=== PATIENT | male | born 1975 | race African-American/Black ===

== ENCOUNTER 2018-07-16 10:49 | Inpatient (IN) | payer MEDICAID ==
[~2018-07-16] VITALS: Ht 175.3 cm; Wt 81.4 kg
--- NOTE | 2018-07-16 10:50 | NUR ---
Patient is awake, confuse, unable to say the month or year at this time, spo2= mid-80's@room air, MD notified. Nasal cannula started. Maintained on continuous cardiac, BP & spo2 monitors with alarms set, on & audible. Extra warm blankets on. Seizure precaution initiated. IV line from the field was checked & this IV line does not work. PIV line infiltrates with 2 ml of saline flush. Frame Operator-RN will start another peripheral IV line.
[2018-07-16] MEDS ORDERED: LORAZEPAM 2 MG/1 ML VIAL ONE (11:20)
--- NOTE | 2018-07-16 11:23 | NUR ---
Simran navarrete in EDM - 07/16/18 at 1147 by ROSANGELA 1118- Patient had grand mal seizure (tonic clonic) for approximately lasted for less than a minute, medicated with IV ativan per MD order, suctioned orally.
--- NOTE | 2018-07-16 11:23 | NUR ---
1118- Patient had grand mal seizure (tonic-clonic) which lasted approximately less than a minute, MD is at bedside. Ativan 1mg IV given per MD order, suctioned orally.
--- NOTE | 2018-07-16 11:23 | NUR ---
Simran navarrete in EDM - 07/16/18 at 1132 by ROSANGELA Patient ahd grand mal seizure ( tonic & clonic) approx 30 seconds, medicated with IV ativan per MD order.
[2018-07-16] MEDS ORDERED: LORAZEPAM 2 MG/1 ML VIAL IV ONE (11:45)
[2018-07-16] MEDS ORDERED: LEVETIRACETAM IV 1,000 MG in IV DEXTROSE 5% 100 ML IV ONE (11:45)
[2018-07-16 11:55] LABS: BASOPHILS # (AUTO) 0.1 K/uL (0.0-8.0); BASOPHILS % (AUTO) 0.4 % (0.0-2.0); EOSINOPHILS # (AUTO) 0.1 K/uL (0.0-0.7); EOSINOPHILS % (AUTO) 0.7 % (0.0-7.0); HEMATOCRIT 44.3 % (36.7-47.1); LYMPHOCYTES # (AUTO) 2.1 K/uL (20.0-40.0); LYMPHOCYTES % (AUTO) 14.2 % (20.5-51.5); MEAN CORPUSCULAR HEMOGLOBIN 30.5 uug (23.8-33.4); MEAN CORPUSCULAR HGB CONC 32 g/dL (32.5-36.3); MEAN CORPUSCULAR VOLUME 96.3 fL (73.0-96.2); MONOCYTES % (AUTO) 6.7 % (0.0-11.0); NEUTROPHILS # (AUTO) 11.4 K/uL (1.8-8.9); PLATELET COUNT (AUTO) 254 K/uL (152-348); WHITE BLOOD COUNT (AUTO) 14.7 K/uL (3.6-10.2)
[2018-07-16 12:04] LABS: ETHANOL < 3 MG/DL (0-0)
[2018-07-16 12:12] LABS: ALANINE AMINOTRANSFERASE 63 U/L (16-63); ALKALINE PHOSPHATASE 61 U/L (50-136); ASPARTATE AMINOTRANSFERASE 219 U/L (15-37); BILIRUBIN,DIRECT 0.1 mg/dL (0.0-0.2); BILIRUBIN,TOTAL 0.3 mg/dL (0.2-1.0); CHLORIDE 105 mmol/L (98-107); CREATININE 1.5 mg/dL (0.6-1.3); GLUCOSE 127 mg/dL (74-106); POTASSIUM 3.8 mmol/L (3.5-5.1); TOTAL PROTEIN, SERUM 8.6 g/dL (6.4-8.2); UREA NITROGEN, BLOOD 12 mg/dL (7-18)
[2018-07-16 12:14] LABS: ACETAMINOPHEN < 2.0 ug/mL (10-30); CARBON DIOXIDE 9 mmol/L (21-32)
[2018-07-16 12:26] LABS: THYROID STIMULATING HORMONE 2.054 mIU/mL (0.358-3.740)
--- NOTE | 2018-07-16 12:29 | NUR ---
Patient is resting comfortably in bed with eyes closed, arousable by voice, follows command, respiration:easy. Girlfriend is at bedside.
[2018-07-16 12:43] LABS: *BILIRUBIN,URIN NEGATIVE (NEGATIVE); *BLOOD, URINE 3+ (NEGATIVE); *CLARITY,URINE CLEAR (CLEAR); *COLOR,URINE YELLOW (YELLOW); *KETONES,URINE NEGATIVE (NEGATIVE); *UROBILINOGEN,URINE 0.2 E.U./dl (NORMAL); LEUKOCYTE ESTERASE ,URINE NEGATIVE (NEGATIVE); NITRITE, URINE NEGATIVE (NEGATIVE); PH,URINE 5.5 (5.0-8.0); UGLUCOSE NEGATIVE (NEGATIVE)
[2018-07-16 12:49] LABS: *AMPHETAMINE, URINE NEGATIVE (NEGATIVE); *BARBITURATE, URINE NEGATIVE (NEGATIVE); *CANNABINOID, URINE POSITIVE (NEGATIVE); *COCCAINE, URINE NEGATIVE (NEGATIVE); *OPIATE, URINE NEGATIVE (NEGATIVE); *PHENCYCLIDINE SCREEN,URINE NEGATIVE (NEGATIVE); BACTERIA,URINE FEW /HPF (NONE SEEN); RBC,URINE 0-3 /HPF (0-3); SQUAMOUS EPITHELIAL CELL,UR FEW /HPF (NONE SEEN); WBC,URINE 0-3 /HPF (0-3)
[2018-07-16 14:54] VITALS: BP 133/69
[2018-07-16] MEDS ORDERED: MAGNESIUM HYDROXIDE 30 ML LIQUID UDC PO PRN (16:00)
[2018-07-16] MEDS ORDERED: ONDANSETRON 4 MG/2 ML VIAL IV PRN (16:00)
[2018-07-16] MEDS ORDERED: LORAZEPAM 2 MG/1 ML VIAL IV PRN (16:00)
[2018-07-16] MEDS ORDERED: ZOLPIDEM 5 MG TABLET PO PRN (16:00)
[2018-07-16] MEDS ORDERED: HYDROCODONE/APAP 5-325MG TABLET PO PRN (16:00)
[2018-07-16] MEDS ORDERED: Z GUARD REMEDY PASTE 57 GM TUBE TOP PRN (16:00)
[2018-07-16] MEDS ORDERED: ACETAMINOPHEN 325 MG TABLET PO PRN (16:00)
[2018-07-16] MEDS ORDERED: CEFTRIAXONE 1 G in IV DEXTROSE 5% 50 ML IV SCH ×2 (17:00→23:45)
[2018-07-16] MEDS: LACTULOSE 20 G/30 ML LIQUID UDC PO SCH ×3 (17:32→23:49)
[2018-07-16] MEDS: IV NS 1000 ML 1,000 ML IV PRN (17:45)
[2018-07-16 19:58] VITALS: BP 106/53
--- NOTE | 2018-07-16 23:00 | NUR ---
Yesy VELEZ here and saw patient; new orders made and carried out.
[2018-07-16] MEDS: THIAMINE HCL 100 MG TABLET PO SCH (23:49)
[2018-07-16] MEDS: FOLIC ACID 1 MG TABLET PO SCH (23:49)
[2018-07-17 01:06] VITALS: BP 97/61
[2018-07-17] MEDS: IV NS 1000 ML 1,000 ML IV PRN (04:52)
[2018-07-17 05:12] VITALS: BP 124/68
[2018-07-17] MEDS: LACTULOSE 20 G/30 ML LIQUID UDC PO SCH (05:46)
[2018-07-17 05:47] LABS: BASOPHILS % (AUTO) 0.4 % (0.0-2.0); EOSINOPHILS # (AUTO) 0.1 K/uL (0.0-0.7); EOSINOPHILS % (AUTO) 1.5 % (0.0-7.0); HEMATOCRIT 37.5 % (36.7-47.1); HEMOGLOBIN 12.8 g/dL (12.5-16.3); LYMPHOCYTES # (AUTO) 1.5 K/uL (20.0-40.0); LYMPHOCYTES % (AUTO) 19.6 % (20.5-51.5); MEAN CORPUSCULAR HEMOGLOBIN 30.6 uug (23.8-33.4); MEAN CORPUSCULAR HGB CONC 34 g/dL (32.5-36.3); MEAN CORPUSCULAR VOLUME 89.4 fL (73.0-96.2); MONOCYTES # (AUTO) 0.9 K/uL (2.0-10.0); MONOCYTES % (AUTO) 10.8 % (0.0-11.0); NEUTROPHILS # (AUTO) 5.3 K/uL (1.8-8.9); NEUTROPHILS % (AUTO) 67.7 % (38.5-71.5); PLATELET COUNT (AUTO) 234 K/uL (152-348); WHITE BLOOD COUNT (AUTO) 7.9 K/uL (3.6-10.2)
[2018-07-17] MEDS ORDERED: CHLORDIAZEPOXIDE HCL 25 MG CAPSULE PO SCH (06:00)
[2018-07-17 06:13] LABS: CREATININE 1.4 mg/dL (0.6-1.3); MAGNESIUM 2.1 mg/dL (1.8-2.4); PHOSPHOROUS 4.3 mg/dL (2.5-4.9); POTASSIUM 3.8 mmol/L (3.5-5.1)
[2018-07-17 07:55] VITALS: BP 107/64
[2018-07-17] MEDS: THIAMINE HCL 100 MG TABLET PO SCH (07:57)
[2018-07-17] MEDS: FOLIC ACID 1 MG TABLET PO SCH (07:57)
--- NOTE | 2018-07-17 08:00 | NUR ---
AWAKE ALERT AND ORIENTED X3 NO SS OF PAIN OR DISTRESS, NO SEIZURE CONTINUE WITH IVF. SB
--- NOTE | 2018-07-17 10:00 | NUR ---
SEEN BY Keyon EDMONDSON DIGITAL PRINT OPERATOR WITH DC ORDER. SPOKE WITH PATIENT TO FOLLOW-UP WITH PCP AND CONTINUE WITH L[facility] FOR ELEVATED WBC
[2018-07-17] MEDS ORDERED: LEVO500T2 PO (12:02)
[2018-07-17 12:12] VITALS: BP 113/51
--- NOTE | 2018-07-17 12:57 | NUR ---
DISCHARGED HOME STABLE ACCOMPANIED BY FAMILY. WILL CALL APPT FOR PCP.
== END 2018-07-17 13:00 | disposition home or self-care (01) | DRG 433 ==
LOC: ER 10:49 → DOU 14:04 → TELE-TD 14:49
PROVIDERS: ADMIT Nurse Practitioner Acute Care; ATTEND Nurse Practitioner Acute Care
DX: K70.40 Alcoholic hepatic failure without coma (principal); F10.239 Alcohol dependence with withdrawal, unspecified; G40.509 Epileptic seizures related to external causes, not intractable, without status epilepticus; E87.2 Acidosis; Y90.0 Blood alcohol level of less than 20 mg/100 ml; D72.829 Elevated white blood cell count, unspecified
CPT/HCPCS: 36415; 70030-TC; 70450; 71045; 80307; 83605; 83735; 84100; 84443; 85025; 85730; 87040; 87086; 93005; A4663; G0378; G0480; G0480-TC; J0696; J1953; J2060; J7030; J7060

== ENCOUNTER 2018-08-03 09:12 | Inpatient (IN) | payer OTHER ==
[~2018-08-03] VITALS: Ht 180.3 cm; Wt 86.2 kg
[~2018-08-03 09:12] MED LIST: LEVO500T2 PO
[2018-08-03] MEDS ORDERED: LORAZEPAM 2 MG/1 ML VIAL ONE (09:42)
[2018-08-03] MEDS ORDERED: THIAMINE HCL 200 MG/2 ML VIAL ONE (09:42)
[2018-08-03] MEDS ORDERED: LORAZEPAM 2 MG/1 ML VIAL IV ONE (09:45)
[2018-08-03] MEDS ORDERED: THIAMINE HCL 200 MG/2 ML VIAL IV ONE (09:45)
[2018-08-03] MEDS ORDERED: IV NORMAL SALINE 1000 ML BAG IV ONE (09:45)
[2018-08-03 09:50] LABS: BASOPHILS # (AUTO) 0.1 K/uL (0.0-8.0); BASOPHILS % (AUTO) 0.8 % (0.0-2.0); EOSINOPHILS # (AUTO) 0.1 K/uL (0.0-0.7); EOSINOPHILS % (AUTO) 1.5 % (0.0-7.0); HEMATOCRIT 39.8 % (36.7-47.1); HEMOGLOBIN 13.3 g/dL (12.5-16.3); LYMPHOCYTES # (AUTO) 2.1 K/uL (20.0-40.0); LYMPHOCYTES % (AUTO) 21.6 % (20.5-51.5); MEAN CORPUSCULAR HEMOGLOBIN 30.5 uug (23.8-33.4); MEAN CORPUSCULAR HGB CONC 34 g/dL (32.5-36.3); MEAN CORPUSCULAR VOLUME 91.1 fL (73.0-96.2); MONOCYTES # (AUTO) 0.5 K/uL (2.0-10.0); MONOCYTES % (AUTO) 5.6 % (0.0-11.0); NEUTROPHILS # (AUTO) 6.7 K/uL (1.8-8.9); NEUTROPHILS % (AUTO) 70.5 % (38.5-71.5); PLATELET COUNT (AUTO) 189 K/uL (152-348); RED BLOOD CELL COUNT(AUTO) 4.36 MIL/uL (4.06-5.63); WHITE BLOOD COUNT (AUTO) 9.5 K/uL (3.6-10.2)
[2018-08-03 10:00] LABS: CARBON DIOXIDE 16 mmol/L (21-32); CHLORIDE 104 mmol/L (98-107); CREATININE 1.4 mg/dL (0.6-1.3); GLUCOSE 123 mg/dL (74-106); POTASSIUM 4.4 mmol/L (3.5-5.1); UREA NITROGEN, BLOOD 13 mg/dL (7-18)
--- NOTE | 2018-08-03 10:03 | NUR ---
LABS DRAWN AND SENT, IV PLACED, 1L 0.9NS INFUSINING, ATIVAN ADMIN. MONITOR SHOWS NSR, PT RETURN FROM CT SCAN. SIDE RAILES PADDED.
[2018-08-03 10:06] LABS: ALANINE AMINOTRANSFERASE 31 U/L (16-63); ALKALINE PHOSPHATASE 67 U/L (50-136); ASPARTATE AMINOTRANSFERASE 19 U/L (15-37); BILIRUBIN,DIRECT 0.1 mg/dL (0.0-0.2); BILIRUBIN,TOTAL 0.3 mg/dL (0.2-1.0); TOTAL PROTEIN, SERUM 7.4 g/dL (6.4-8.2)
[2018-08-03 10:07] LABS: ACETAMINOPHEN < 2.0 ug/mL (10-30)
[2018-08-03 10:08] LABS: ETHANOL < 3 MG/DL (0-0)
[2018-08-03 10:18] LABS: *BILIRUBIN,URIN NEGATIVE (NEGATIVE); *BLOOD, URINE 1+ (NEGATIVE); *CLARITY,URINE CLEAR (CLEAR); *COLOR,URINE YELLOW (YELLOW); *KETONES,URINE 1+ (NEGATIVE); *UROBILINOGEN,URINE 0.2 E.U./dl (NORMAL); LEUKOCYTE ESTERASE ,URINE NEGATIVE (NEGATIVE); NITRITE, URINE NEGATIVE (NEGATIVE); PH,URINE 5.5 (5.0-8.0); UGLUCOSE NEGATIVE (NEGATIVE)
[2018-08-03 10:20] LABS: BACTERIA,URINE FEW /HPF (NONE SEEN); RBC,URINE 0-3 /HPF (0-3); SQUAMOUS EPITHELIAL CELL,UR FEW /HPF (NONE SEEN); WBC,URINE 0-3 /HPF (0-3)
[2018-08-03 10:28] LABS: *AMPHETAMINE, URINE NEGATIVE (NEGATIVE); *BARBITURATE, URINE NEGATIVE (NEGATIVE); *CANNABINOID, URINE POSITIVE (NEGATIVE); *COCCAINE, URINE NEGATIVE (NEGATIVE); *OPIATE, URINE NEGATIVE (NEGATIVE); *PHENCYCLIDINE SCREEN,URINE NEGATIVE (NEGATIVE)
--- NOTE | 2018-08-03 11:24 | NUR ---
IV COMPLETED, SBAR REPORT TO TAVO RN, PT TO RM 203 VIA JAVAN. BELONGINGS LIST DONE.
[2018-08-03 12:00] VITALS: BP 123/69
[2018-08-03 12:12] VITALS: BP 114/63
[2018-08-03] MEDS ORDERED: Z GUARD REMEDY PASTE 57 GM TUBE TOP PRN (12:30)
[2018-08-03] MEDS ORDERED: HYDROCODONE/APAP 5-325MG TABLET PO PRN (12:30)
[2018-08-03] MEDS ORDERED: MAGNESIUM HYDROXIDE 30 ML LIQUID UDC PO PRN (12:30)
[2018-08-03] MEDS ORDERED: ONDANSETRON 4 MG/2 ML VIAL IV PRN (12:30)
[2018-08-03] MEDS ORDERED: ZOLPIDEM 5 MG TABLET PO PRN (12:30)
[2018-08-03] MEDS ORDERED: ACETAMINOPHEN 325 MG TABLET PO PRN (12:30)
[2018-08-03] MEDS ORDERED: LORAZEPAM 2 MG/1 ML VIAL IV PRN (12:45)
[2018-08-03] MEDS: IV D5 1/2 NS 1000 ML 1,000 ML IV PRN (13:04)
[2018-08-03 16:25] VITALS: BP 104/64
--- NOTE | 2018-08-03 18:10 | NUR ---
PATIENT ADMITTED A/A/OX4, DENIES PAIN, STATES "VERY SLEEPY". PATIENT SLEPT MOST OF THE SHIFT SINCE ARRIVAL, AWAKE AT THIS TIME WITH SIGNIFICANT OTHER AT BEDSIDE. ORIENTED TO CALL LIGHT, BED ALARM ON FOR SAFETY. IV INTACT AND FLUIDS RUNNING. SEIZURE PRECAUTIONS MAINTAINED. CALL LIGHT IN REACH.
[2018-08-03 20:27] VITALS: BP 139/76
[2018-08-04] MEDS: IV D5 1/2 NS 1000 ML 1,000 ML IV PRN (00:10)
[2018-08-04 05:44] VITALS: BP 128/63
[2018-08-04 06:36] LABS: BASOPHILS % (AUTO) 0.7 % (0.0-2.0); EOSINOPHILS # (AUTO) 0.1 K/uL (0.0-0.7); EOSINOPHILS % (AUTO) 1.8 % (0.0-7.0); HEMATOCRIT 36.8 % (36.7-47.1); HEMOGLOBIN 12.4 g/dL (12.5-16.3); LYMPHOCYTES # (AUTO) 1.6 K/uL (20.0-40.0); LYMPHOCYTES % (AUTO) 23.1 % (20.5-51.5); MEAN CORPUSCULAR HEMOGLOBIN 30.6 uug (23.8-33.4); MEAN CORPUSCULAR HGB CONC 34 g/dL (32.5-36.3); MONOCYTES # (AUTO) 0.5 K/uL (2.0-10.0); MONOCYTES % (AUTO) 7.4 % (0.0-11.0); NEUTROPHILS # (AUTO) 4.8 K/uL (1.8-8.9); PLATELET COUNT (AUTO) 178 K/uL (152-348); RED BLOOD CELL COUNT(AUTO) 4.05 MIL/uL (4.06-5.63); WHITE BLOOD COUNT (AUTO) 7.1 K/uL (3.6-10.2)
[2018-08-04 06:44] LABS: CREATININE 1.2 mg/dL (0.6-1.3); MAGNESIUM 1.9 mg/dL (1.8-2.4); PHOSPHOROUS 3.2 mg/dL (2.5-4.9); TOTAL PROTEIN, SERUM 6.4 g/dL (6.4-8.2)
--- NOTE | 2018-08-04 07:54 | NUR ---
Awake, alert, oriented x 4. Saline lock out. IVF off. Not in distress, verbalized feeling better
--- NOTE | 2018-08-04 08:30 | NUR ---
Agreed for reinsertion of saline lock. IVF resumed, due medication given
[2018-08-04] MEDS ORDERED: THIAMINE HCL INJ 100 MG in IV DEXTROSE 5% 50 ML IV SCH (09:00)
--- NOTE | 2018-08-04 10:25 | NUR ---
Called Dr. Bhat left message about AMA
--- NOTE | 2018-08-04 10:28 | NUR ---
Girlfriend at bedside. Patient very upset and angry regarding personal issues and wants to AMA. Risks and benefits explained and advised to follow up with PMD. Signed AMA form. Saline lock removed. Went home per ambulatory
== END 2018-08-04 10:25 | disposition left against medical advice (07) | DRG 894 ==
LOC: ER 09:12 → MERGE 09:12 → ER 11:47 → MED 12:02
PROVIDERS: ADMIT Internal Medicine; ATTEND Internal Medicine
DX: F10.231 Alcohol dependence with withdrawal delirium (principal); N17.0 Acute kidney failure with tubular necrosis; G40.509 Epileptic seizures related to external causes, not intractable, without status epilepticus; Y90.0 Blood alcohol level of less than 20 mg/100 ml
CPT/HCPCS: 36415; 70450; 71045; 80307; 83735; 84100; 85025; A4663; G0378; G0480; G0480-TC; J2060; J3411; J3490; J7030; J7060

== ENCOUNTER 2018-12-23 04:12 | Inpatient (IN) | payer MEDICAID, OTHER ==
[~2018-12-23] VITALS: Ht 175.3 cm; Wt 79.4 kg
[2018-12-23] MEDS: IV D5/ 0.9% NACL 1,000 ML IV ONE ×2 (04:19→04:47)
--- NOTE | 2018-12-23 04:20 | NUR ---
Dr. Riggs at bedside for MSE.
--- NOTE | 2018-12-23 04:20 | NUR ---
Seizure precautions implemented
[2018-12-23] MEDS ORDERED: [UNRECOGNIZED DRUG - REMARK] (04:21)
[2018-12-23 04:43] LABS: BASOPHILS # (AUTO) 0.1 K/uL (0.0-8.0); BASOPHILS % (AUTO) 0.7 % (0.0-2.0); EOSINOPHILS # (AUTO) 0.2 K/uL (0.0-0.7); EOSINOPHILS % (AUTO) 1.8 % (0.0-7.0); HEMOGLOBIN 14.5 g/dL (12.5-16.3); LYMPHOCYTES # (AUTO) 2.9 K/uL (20.0-40.0); MEAN CORPUSCULAR HEMOGLOBIN 29.3 uug (23.8-33.4); MEAN CORPUSCULAR HGB CONC 32 g/dL (32.5-36.3); MEAN CORPUSCULAR VOLUME 91.2 fL (73.0-96.2); MONOCYTES # (AUTO) 0.7 K/uL (2.0-10.0); MONOCYTES % (AUTO) 7.2 % (0.0-11.0); NEUTROPHILS # (AUTO) 5.4 K/uL (1.8-8.9); NEUTROPHILS % (AUTO) 59.3 % (38.5-71.5); PLATELET COUNT (AUTO) 250 K/uL (152-348); RED BLOOD CELL COUNT(AUTO) 4.94 MIL/uL (4.06-5.63); WHITE BLOOD COUNT (AUTO) 9.2 K/uL (3.6-10.2)
[2018-12-23] MEDS ORDERED: LORAZEPAM 2 MG/1 ML VIAL ONE ×2 (04:45→05:23)
--- NOTE | 2018-12-23 04:45 | NUR ---
Pt keeps refusing IV. notified.
[2018-12-23] MEDS: LORAZEPAM 2 MG/1 ML VIAL IV ONE ×2 (04:47→05:28)
--- NOTE | 2018-12-23 04:47 | NUR ---
Pt out of ER for CT.
[2018-12-23] MEDS ORDERED: LORAZEPAM 1 MG TABLET ONE (04:48)
[2018-12-23 04:49] LABS: ETHANOL < 3 MG/DL (0-0)
[2018-12-23 04:50] LABS: CARBON DIOXIDE 13 mmol/L (21-32); CHLORIDE 104 mmol/L (98-107); CREATININE 1.4 mg/dL (0.6-1.3); GLUCOSE 107 mg/dL (74-106); POTASSIUM 4.5 mmol/L (3.5-5.1); UREA NITROGEN, BLOOD 14 mg/dL (7-18)
[2018-12-23 05:05] LABS: ACETAMINOPHEN < 2.0 ug/mL (10-30); ALANINE AMINOTRANSFERASE 22 U/L (16-63); ALKALINE PHOSPHATASE 61 U/L (50-136); ASPARTATE AMINOTRANSFERASE 20 U/L (15-37); BILIRUBIN,DIRECT 0.1 mg/dL (0.0-0.2); BILIRUBIN,TOTAL 0.3 mg/dL (0.2-1.0); TOTAL PROTEIN, SERUM 8.4 g/dL (6.4-8.2)
--- NOTE | 2018-12-23 05:05 | NUR ---
Pt back to ER from CT.
[2018-12-23] MEDS ORDERED: LEVETIRACETAM IV 500 MG in IV DEXTROSE 5% 100 ML IV ONE (05:15)
[2018-12-23] MEDS ORDERED: LEVETIRACETAM 500 MG/5 ML VIAL IV ONE (05:20)
[2018-12-23] MEDS ORDERED: THIAMINE HCL 200 MG/2 ML VIAL IV ONE (05:30)
[2018-12-23] MEDS ORDERED: THIAMINE HCL 200 MG/2 ML VIAL ONE (05:32)
[2018-12-23] MEDS ORDERED: LORAZEPAM 0.5 MG TABLET PO ONE (05:45)
--- NOTE | 2018-12-23 05:50 | NUR ---
Pt provided urine sample, sent to lab.
[2018-12-23] MEDS ORDERED: LACTULOSE 20 G/30 ML LIQUID UDC PO ONE (06:00)
--- NOTE | 2018-12-23 06:04 | NUR ---
Dr. Riggs on panel call with Dr. Odonnell. Patient accepted for admission to [facility], diagnosis: alcohol withdrawal, seizures.
[2018-12-23] MEDS ORDERED: THIAMINE HCL 100 MG TABLET PO ONE (06:15)
[2018-12-23] MEDS ORDERED: MAGNESIUM HYDROXIDE 30 ML LIQUID UDC PO PRN (06:15)
[2018-12-23] MEDS ORDERED: Z GUARD REMEDY PASTE 57 GM TUBE TOP PRN (06:15)
[2018-12-23] MEDS ORDERED: ONDANSETRON 4 MG/2 ML VIAL IV PRN (06:15)
[2018-12-23] MEDS ORDERED: LORAZEPAM 2 MG/1 ML VIAL IV PRN (06:15)
[2018-12-23] MEDS ORDERED: HYDROCODONE/APAP 5-325MG TABLET PO PRN (06:15)
[2018-12-23] MEDS ORDERED: LACTULOSE 20 G/30 ML LIQUID UDC ONE (06:18)
[2018-12-23 06:36] LABS: *AMPHETAMINE, URINE NEGATIVE (NEGATIVE); *BARBITURATE, URINE NEGATIVE (NEGATIVE); *CANNABINOID, URINE POSITIVE (NEGATIVE); *COCCAINE, URINE NEGATIVE (NEGATIVE); *OPIATE, URINE NEGATIVE (NEGATIVE); *PHENCYCLIDINE SCREEN,URINE NEGATIVE (NEGATIVE)
--- NOTE | 2018-12-23 06:56 | NUR ---
Report given to Minor Galdamez RN dayshift.
--- NOTE | 2018-12-23 07:03 | NUR ---
RECEIVED SHIFT REPORT FROM DEVORA Wakefield RN. PT RESTING IN BED. VSS. SEIZURE PRECAUTIONS OBSERVED.
--- NOTE | 2018-12-23 07:57 | NUR ---
ADMITTING REPORT GIVEN TO CORRINA GRAMAJO.
--- NOTE | 2018-12-23 07:58 | NUR ---
Pt. admitted to TELE 301, under care of Dr. PERKINS. Belongs List completed
--- NOTE | 2018-12-23 08:00 | NUR ---
RECEIVED PATIENT FROM ER, PATIENT AWAKE ALERT AND ORIENTED X3. SEIZURE PRECAUTIONS IMPLEMENTED. NPO PER DR. VARGAS. PATIENT DENIES ANY PAIN OR DISCOMFORT AT THIS TIME. BED IN LOWEST POSITION WITH SIDE RAILS UP AND PADDED. BED ALARM ON, AND CALL LIGHT AT REACH.
[2018-12-23 09:00] VITALS: BP 140/87
[2018-12-23] MEDS: FOLIC ACID 1 MG TABLET PO SCH (09:00)
[2018-12-23] MEDS ORDERED: PANTOPRAZOLE SODIUM 40 MG VIAL IV SCH (09:00)
[2018-12-23] MEDS: LACTULOSE 20 G/30 ML LIQUID UDC PO SCH ×4 (09:00→20:17)
--- NOTE | 2018-12-23 09:00 | NUR ---
MD NOTIFIED REGARDING NEW ADMISSION ORDERS AND LACTIC ACID RESULTS. NO NEW ORDERS RECEIVED AT THIS TIME.
[2018-12-23] MEDS: IV NS 1000 ML 1,000 ML IV PRN ×2 (10:00→23:30)
[2018-12-23 12:34] VITALS: BP 127/81
[2018-12-23 15:29] VITALS: BP 119/68
[2018-12-23] MEDS: LEVETIRACETAM IV 500 MG in IV DEXTROSE 5% 100 ML IV SCH (17:14)
--- NOTE | 2018-12-23 18:43 | NUR ---
PATIENT COMFORTABLE THROUGHOUT SHIFT, IN NO DISTRESS. SEIZURE PRECAUTIONS, VITAL SIGNS STABLE. BED AT LOWEST POSITION, SIDE RAILS UP X2 AND CALL LIGHT WITHIN REACH.
--- NOTE | 2018-12-23 19:30 | NUR ---
Received pt in bed, resting and in no acute signs of distress. No c/o pain. IV fluids infusing. On seizure precautions, bilateral siderails padded. Safety measures observed.
[2018-12-23 20:14] VITALS: BP 139/72
[2018-12-23] MEDS: FAMOTIDINE. 20 MG/2 ML VIAL IV SCH (20:17)
[2018-12-24 00:46] VITALS: BP 108/75
[2018-12-24 04:43] VITALS: BP 132/67
[2018-12-24] MEDS: LEVETIRACETAM IV 500 MG in IV DEXTROSE 5% 100 ML IV SCH (05:16)
--- NOTE | 2018-12-24 05:50 | NUR ---
No significant changes during shift. No c/o pain. SR/ Sinus huey on tele. In no acute signs of distress. No seizure episode. Safety measures rendered.
[2018-12-24 06:54] LABS: BASOPHILS # (AUTO) 0.1 K/uL (0.0-8.0); BASOPHILS % (AUTO) 0.9 % (0.0-2.0); EOSINOPHILS # (AUTO) 0.1 K/uL (0.0-0.7); EOSINOPHILS % (AUTO) 1.1 % (0.0-7.0); HEMATOCRIT 39.5 % (36.7-47.1); HEMOGLOBIN 13.1 g/dL (12.5-16.3); LYMPHOCYTES # (AUTO) 1.3 K/uL (20.0-40.0); LYMPHOCYTES % (AUTO) 18.1 % (20.5-51.5); MEAN CORPUSCULAR HEMOGLOBIN 29.3 uug (23.8-33.4); MEAN CORPUSCULAR HGB CONC 33 g/dL (32.5-36.3); MEAN CORPUSCULAR VOLUME 88.2 fL (73.0-96.2); MONOCYTES # (AUTO) 0.7 K/uL (2.0-10.0); MONOCYTES % (AUTO) 9.7 % (0.0-11.0); NEUTROPHILS # (AUTO) 5.2 K/uL (1.8-8.9); NEUTROPHILS % (AUTO) 70.2 % (38.5-71.5); PLATELET COUNT (AUTO) 197 K/uL (152-348); RED BLOOD CELL COUNT(AUTO) 4.49 MIL/uL (4.06-5.63); WHITE BLOOD COUNT (AUTO) 7.4 K/uL (3.6-10.2)
[2018-12-24 07:03] LABS: BILIRUBIN,TOTAL 0.9 mg/dL (0.2-1.0); CREATININE 1.4 mg/dL (0.6-1.3); MAGNESIUM 2.2 mg/dL (1.8-2.4); PHOSPHOROUS 3.9 mg/dL (2.5-4.9); POTASSIUM 3.7 mmol/L (3.5-5.1); TOTAL PROTEIN, SERUM 6.9 g/dL (6.4-8.2)
[2018-12-24] MEDS: FOLIC ACID 1 MG TABLET PO SCH (08:00)
[2018-12-24] MEDS: FAMOTIDINE. 20 MG/2 ML VIAL IV SCH (08:00)
[2018-12-24] MEDS: LACTULOSE 20 G/30 ML LIQUID UDC PO SCH (08:00)
[2018-12-24] MEDS ORDERED: THIAMINE HCL 100 MG TABLET PO SCH (09:00)
[2018-12-24] MEDS ORDERED: MULTIVITAMINS,THERAPEUTIC TABLET PO SCH (09:00)
[2018-12-24 09:55] LABS: THYROID STIMULATING HORMONE 0.684 mIU/mL (0.358-3.740)
[2018-12-24] MEDS ORDERED: LEVETIRACETAM 500 MG TABLET PO SCH (17:00)
[2018-12-24] MEDS ORDERED: FAMOTIDINE 20 MG TABLET PO SCH (21:00)
== END 2018-12-24 11:10 | disposition left against medical advice (07) | DRG 53 ==
LOC: ER 04:14 → TELE3 08:00
PROVIDERS: ADMIT Student in an Organized Health Care Education/Training Program; ATTEND Internal Medicine
DX: G40.509 Epileptic seizures related to external causes, not intractable, without status epilepticus (principal); N17.0 Acute kidney failure with tubular necrosis; F10.239 Alcohol dependence with withdrawal, unspecified; E87.2 Acidosis; Y90.0 Blood alcohol level of less than 20 mg/100 ml; F17.210 Nicotine dependence, cigarettes, uncomplicated; Z91.14 Patient's other noncompliance with medication regimen; D18.1 Lymphangioma, any site; Z91.19 Patient's noncompliance with other medical treatment and regimen; F12.90 Cannabis use, unspecified, uncomplicated; E72.20 Disorder of urea cycle metabolism, unspecified; G40.909 Epilepsy, unspecified, not intractable, without status epilepticus
CPT/HCPCS: 36415; 70450; 76705; 80299; 80307; 83605; 83735; 84100; 84443; 85025; 93005; A4663; G0378; G0480; G0480-TC; J1953; J2060; J3411; J3490; J7030; J7060